=== PATIENT | male | born 1965 | race Caucasian/White ===

== ENCOUNTER 2019-03-08 06:54 | Day surgery (SDC) | payer MEDICAID ==
[2019-03-08] VITALS (17 sets, daily range): BP systolic 85–133; BP diastolic 33–86
[~2019-03-08] VITALS: Ht 180.3 cm; Wt 90.7 kg
[2019-03-08] MEDS ORDERED: NS IV 1000 ML 1,000 ML ONE (06:56)
[2019-03-08] MEDS ORDERED: LIDOCAINE 1% INJ 20 ML 20 ML VIAL ONE (06:56)
[2019-03-08] MEDS ORDERED: HEParin (CATH LAB) 2,000 ML IV ONE (06:57)
[2019-03-08] MEDS: NS IV 1000 ML 1,000 ML IV SCH ×3 (07:05→15:12)
[2019-03-08 07:29] LABS: HEMOGLOBIN 15.9 G/DL (13.3-17.7); MEAN PLATELET VOLUME 9.5 FL (7.4-10.4); RED CELL DISTRIBUTION WIDTH 15.4 % (10.0-14.5); WHITE BLOOD COUNT 7.2 10^3/uL (4.3-11.0)
[2019-03-08] MEDS ORDERED: FISH1CAP15 PO (07:29)
[2019-03-08] MEDS ORDERED: WARF7.5T49 PO (07:29)
[2019-03-08] MEDS ORDERED: RT-ALBUINH IH (07:29)
[2019-03-08] MEDS ORDERED: POTA-51 PO (07:29)
[2019-03-08] MEDS ORDERED: WARF-48 PO (07:29)
[2019-03-08] MEDS ORDERED: BECL10.62 IH (07:29)
[2019-03-08] MEDS ORDERED: FLUT15.88 NSEACH (07:29)
[2019-03-08] MEDS ORDERED: MONT10TA21 PO (07:29)
[2019-03-08] MEDS ORDERED: METO-352 PO (07:29)
[2019-03-08] MEDS ORDERED: ASPI-586 PO (07:29)
[2019-03-08] MEDS ORDERED: CETI10TA17 PO (07:29)
[2019-03-08] MEDS ORDERED: OMEP20CA12 PO (07:29)
[2019-03-08 07:39] LABS: INR 1.4 (0.8-1.4); PROTHROMBIN TIME PATIENT 17.7 SEC (12.2-14.7)
[2019-03-08 07:51] LABS: ALANINE AMINOTRANSFERASE 45 U/L (0-55); ALBUMIN 4.5 GM/DL (3.2-4.5); ALKALINE PHOSPHATASE 88 U/L (40-136); BILIRUBIN,TOTAL 1.1 MG/DL (0.1-1.0); BUN/CREATININE RATIO 8; CALCIUM 9.9 MG/DL (8.5-10.1); CARBON DIOXIDE 30 MMOL/L (21-32); CHLORIDE 103 MMOL/L (98-107); CHOLESTEROL 242 MG/DL (< 200); CREATININE SERUM 1.19 MG/DL (0.60-1.30); GFR ESTIMATED > 60; GLUCOSE 95 MG/DL (70-105); HDL CHOLESTEROL 48 MG/DL (40-60); POTASSIUM 4.4 MMOL/L (3.6-5.0); SODIUM 141 MMOL/L (135-145); TOTAL PROTEIN 7.9 GM/DL (6.4-8.2); TRIGLYCERIDES 204 MG/DL (<150); VLDL CHOLESTEROL 41 MG/DL (5-40)
[2019-03-08] MEDS ORDERED: MIDAZOLAM 5 MG/5 ML (VERSED) VIAL ONE (07:51)
[2019-03-08] MEDS ORDERED: fentaNYL INJECTION 100 MCG/2 ML AMP ONE (07:51)
--- NOTE | 2019-03-08 08:08 | Cardiac Procedure Note-CS/ASA ---
Pre-Procedure Note Pre-Op Procedure Note H&P Reviewed The H&P was reviewed, patient examined and no changes noted. Date H&P Reviewed: March 08, 2019 Time H&P Reviewed: 08:08 Conscious Sedation Pre-Proced Time 08:08 ASA Score 3 For ASA 3 and 4: Consider anesthesia and medical clearance. Also, for patients with a history of failed moderate sedation consider anesthesia. Airway Lungs Heart ASA score ASA 1: a normal healthy patient ASA 2: a patient with a mild systemic disease (mid diabetes, controlled hypertension, obesity ASA 3: a patient with a severe systemic disease that limits activity (angina, COPD, prior Myocardial infarction) ASA 4: a patient with an incapacitating disease that is a constant threat to life (CHF, renal failure) ASA 5: a moribund patient not expected to survive 24 hrs. (ruptured aneurysm) ASA 6: a declared brain- patient whose organs are being harvested. For emergent operations, add the letter E after the classification Mallampati Classification Grade 2 Sedation Plan Analgesia, Amnesia, Plan communicated to team members, Discussed options with patient/fam, Discussed risks with patient/fam The patient is an appropriate candidate to undergo the planned procedure, sedation, and anesthesia. The patient immediately re-assessed prior to indication. FADI OLVERA MD FACP FAC CCDS March 08, 2019 08:08
--- OUTSIDE RECORDS SUMMARY | 2019-03-08 08:16 | XMS REPORT | Continuity of Care Document ---
Author Organization Unknown Address Unknown Allergies There is no data. Medications There is no data. Problems There is no data. Procedures There is no data. Results Test Result Range CBC - 02/08/19 10:30 WHITE BLOOD CELL COUNT 6.2 Thousand/uL 3.8-10.8 RED BLOOD CELL COUNT 5.82 Million/uL 4.20-5.80 HEMOGLOBIN 16.2 g/dL 13.2-17.1 HEMATOCRIT 47.4 % 38.5-50.0 MCV 81.4 fL 80.0-100.0 MCH 27.8 pg 27.0-33.0 MCHC 34.2 g/dL 32.0-36.0 RDW 14.2 % 11.0-15.0 PLATELET COUNT 226 Thousand/uL 140-400 MPV 10.6 fL 7.5-12.5 ABSOLUTE NEUTROPHILS 3466 cells/uL 0310-1623 ABSOLUTE LYMPHOCYTES 2003 cells/uL 850-3900 ABSOLUTE MONOCYTES 570 cells/uL 200-950 ABSOLUTE EOSINOPHILS 143 cells/uL 15-500 ABSOLUTE BASOPHILS 19 cells/uL 0-200 NEUTROPHILS 55.9 % NRG LYMPHOCYTES 32.3 % NRG MONOCYTES 9.2 % NRG EOSINOPHILS 2.3 % NRG BASOPHILS 0.3 % NRG CMP - 02/14/19 14:10 GLUCOSE 95 mg/dL 65-99 UREA NITROGEN (BUN) 13 mg/dL 7-25 CREATININE 1.05 mg/dL 0.70-1.33 eGFR NON-AFR. BOTSWANAN 81 mL/min/1.73m2 > OR=60 eGFR 94 mL/min/1.73m2 > OR=60 BUN/CREATININE RATIO NOT APPLICABLE (calc) 6-22 SODIUM 139 mmol/L 135-146 POTASSIUM 4.1 mmol/L 3.5-5.3 CHLORIDE 102 mmol/L 98-110 CARBON DIOXIDE 29 mmol/L 20-32 CALCIUM 9.2 mg/dL 8.6-10.3 PROTEIN, TOTAL 7.1 g/dL 6.1-8.1 ALBUMIN 4.2 g/dL 3.6-5.1 GLOBULIN 2.9 g/dL (calc) 1.9-3.7 ALBUMIN/GLOBULIN RATIO 1.4 (calc) 1.0-2.5 BILIRUBIN, TOTAL 0.5 mg/dL 0.2-1.2 ALKALINE PHOSPHATASE 74 U/L 40-115 AST 22 U/L 10-35 ALT 25 U/L 9-46 CBC - 02/14/19 14:10 WHITE BLOOD CELL COUNT 6.5 Thousand/uL 3.8-10.8 RED BLOOD CELL COUNT 5.67 Million/uL 4.20-5.80 HEMOGLOBIN 15.3 g/dL 13.2-17.1 HEMATOCRIT 47.0 % 38.5-50.0 MCV 82.9 fL 80.0-100.0 MCH 27.0 pg 27.0-33.0 MCHC 32.6 g/dL 32.0-36.0 RDW 14.1 % 11.0-15.0 PLATELET COUNT 193 Thousand/uL 140-400 MPV 9.5 fL 7.5-12.5 ABSOLUTE NEUTROPHILS 3075 cells/uL 6288-3766 ABSOLUTE LYMPHOCYTES 2548 cells/uL 850-3900 ABSOLUTE MONOCYTES 650 cells/uL 200-950 ABSOLUTE EOSINOPHILS 208 cells/uL 15-500 ABSOLUTE BASOPHILS 20 cells/uL 0-200 NEUTROPHILS 47.3 % NRG LYMPHOCYTES 39.2 % NRG MONOCYTES 10.0 % NRG EOSINOPHILS 3.2 % NRG BASOPHILS 0.3 % NRG D-DIMER - 02/14/19 14:10 D-DIMER, QUANTITATIVE 0.20 mcg/mL FEU <0.50 BNP - 02/14/19 14:10 B TYPE NATRIURETIC PEPTIDE (BNP) 13 pg/mL <100 Encounters ACCT No. Visit Date/Time Discharge Status Pt. Type Provider Facility Loc./Unit Complaint [id number] 02/14/2019 13:00:00 02/14/2019 23:59:59 [id number] 02/14/2019 13:00:00 Document Registration [id number] 02/08/2019 09:40:00 Document Registration [id number] 03/01/2019 14:35:00 03/01/2019 23:59:59 CLS Preadmit MAY FAJARDO FACC, FADI NAVARRO CCDS [facility] CARD CHEST DISCOMFORT [id number] 03/01/2019 14:33:00 03/01/2019 23:59:59 CLS Preadmit MAY FAJARDO FACC, FADI NAVARRO CCDS [facility] RAD CHEST DISCOMFORT [id number] 03/12/2019 08:00:00 PEN PreadFADI Vidales MD, FACC, FACP CCDS [facility] CATH ANGINA, HTN, HYPERLIPIDEMIA, DM
[2019-03-08] MEDS ORDERED: HEParin 1000 UNIT/ML (10ML VIAL) FOR BOLUS ONE (08:24)
[2019-03-08] MEDS ORDERED: ADENOSINE 3 MG/1 ML (ADENOSCAN) 30ML VIAL IV ONE ×2 (08:24→08:26)
[2019-03-08] MEDS ORDERED: EPTIFIBATIDE BOLUS 20 ML IV ONE (08:40)
[2019-03-08] MEDS ORDERED: NITRO DRIP 25000 MCG/D5W 0 ML IV ONE (08:45)
[2019-03-08] MEDS ORDERED: CLOPIDOGREL 300 MG (PLAVIX) TABLET PO ONE (09:13)
[2019-03-08] MEDS ORDERED: ASPIRIN 81 MG CHEW (CHILDREN'S ASA) ONE (09:13)
[2019-03-08] MEDS ORDERED: ACETAMINOPHEN 325 MG TABLET PO PRN (09:45)
[2019-03-08] MEDS ORDERED: BECLOMETHASONE DIPROPIONATE 10.6 GM IH PRN (09:45)
[2019-03-08] MEDS ORDERED: RT-ALBUTEROL SULF 2.5 MG/3 ML PRE-MIX VIAL IH PRN (09:45)
[2019-03-08] MEDS ORDERED: PATIENT MAY USE OWN MEDS, ALL PO SCH (09:45)
--- NOTE | 2019-03-08 11:47 | CARDIAC CATHETERIZATION ---
DATE OF SERVICE: 03/08/2019 CARDIAC CATHETERIZATION AND CORONARY INTERVENTION REPORT INDICATIONS: The patient is a 54-year-old gentleman who has multiple coronary artery disease risk factors and who has been experiencing symptoms consistent with progressive angina. Cardiac catheterization was carried out after having obtained an informed consent. Informed consent was also obtained for ad hoc coronary intervention, if needed. DESCRIPTION OF PROCEDURE: The patient was brought to the cardiac catheterization laboratory in a fasting state. Right groin was prepared and draped in the usual sterile fashion. Lidocaine 1% was used for local anesthesia. Modified Seldinger technique was used to advance a 5-Sami sheath in the right femoral artery, 5-Sami JL4 catheter for left coronary angiography, 5-Sami JR4 catheter for right coronary angiography, 5-Sami pigtail catheter was used for left heart catheterization and left ventricular angiography. FRACTIONAL FLOW RESERVE MEASUREMENT IN THE LEFT ANTERIOR DESCENDING ARTERY: After completion of the angiography, we proceeded with fractional flow reserve measurement within the left anterior descending artery because the left anterior descending artery was exhibiting and approximately 60% stenosis in its proximal portion with haziness. We exchanged the sheath over a wire for a 6-Sami sheath. We gave 6500 units of intravenous heparin. We used a 6-Sami JL4 guide catheter to engage the left main coronary artery. We advanced a Pressure Wire X across the lesion in the left anterior descending artery and the tip was placed in the distal vessel. Fractional flow reserve measurement was carried out while infusing adenosine at 140 mcg per kilogram per minute. Fractional flow reserve was measured at 0.69, indicating that the lesion in the proximal left anterior descending artery was functionally significant. We then proceeded with percutaneous intervention of the left anterior descending artery as described below. PERCUTANEOUS INTERVENTION TO THE LEFT ANTERIOR DESCENDING ARTERY: We used the Pressure Wire X to deliver Alpine Xience 2.25 x 33 mm balloon to the proximal left anterior descending artery where the lesion was. The stent was deployed at 12 atmospheres. The stent balloon was then collapsed and pulled back approximately 3 mm and the balloon was then inflated up to 18 atmospheres. The balloon was then collapsed and removed. Angiography indicated no significant residual stenosis, but the proximal and mid portions of the stent appeared somewhat under deployed. We advanced Quantum NC balloon to the stented segment. The whole stented segment except the distal 3 mm bur ballooned with this 2.75 x 12 mm with balloon inflation up to 20 atmospheres. This was done in stages from distal to proximal. Subsequent angiography revealed 0% residual stenosis and the stent appears to be well deployed. Flow throughout the vessel is normal. He tolerated the procedure well. He received a double bolus of Integrilin during the procedure. He had received 6500 units of intravenous heparin just prior to initiation of the interventional procedure. At the end of the procedure, angiography of the right femoral artery was carried out through the sheath. Mynx was used to achieve hemostasis. He tolerated the procedure well. HEMODYNAMICS: Left ventricular end-diastolic pressure following coronary angiography was 10 mmHg. There is no significant pressure gradient on pullback across the aortic valve. Ascending aortic pressure was 101/61 with a mean of 74 mmHg. LEFT VENTRICULAR ANGIOGRAPHY: Left ventricular angiography was carried out in the EMERSON projection only. Global left ventricular systolic function appears well preserved. There does not appear to be distinct regional wall motion abnormality. Left ventricular ejection fraction is 50% to 55% CORONARY ANGIOGRAPHY: Diffuse coronary calcification is seen. Left main coronary artery does not exhibit significant disease. Left anterior descending artery has a long stenosis in its proximal portion that extends into the mid portion and angiographically appeared 60% to 70%, but was hemodynamically significant with a fractional flow reserve of 0.69 prior to intervention. This area was successfully stented with Alpine Xience 2.25 x 33 mm stent, which was postdilated 2.75 mm size (see above for details). The left circumflex artery is small and has mild diffuse disease. A ramus intermedius artery has mild diffuse disease. Right coronary artery is dominant and has diffuse moderate disease. CONCLUSIONS: 1. Coronary artery disease primarily consisting of a long 60% to 70% stenosis with a fractional flow reserve of 0.69 in its proximal to midportion. This was successfully stented with Alpine Xience 2.25 x 33 mm stent that was postdilated to 2.75 mm size. The rest of the coronary vessels have mild to moderate diffuse disease. 2. Well preserved global left ventricular systolic function with ejection fraction 55%. 3. Normal left ventricular end-diastolic pressure. DISCUSSION AND RECOMMENDATIONS: He is being hospitalized for overnight observation. Dual antiplatelet therapy is being initiated. We will continue with Plavix for a year. We will continue with aspirin for several days and then we will stop it because he is also on warfarin and the use of all 3 agents will put him at high risk of bleeding. Once he comes off of Plavix, we will add aspirin back to the regimen. Risk factor modification has been reviewed with him. We have advised him to continue to refrain from tobacco use. Job ID: [id number] DocumentID: [id number] Dictated Date: 03/08/2019 09:30:58 Freight We[employer]her Date: 03/08/2019 11:46:37 Dictated By: FADI OLVERA MD, MA, FACP, FACC,
--- NOTE | 2019-03-08 17:11 | NUR ---
1711:RN AT BEDSIDE TO DEFLATE SAFETY GUARD. SITE SOFT TO PALPATION. PALPABLE RIGHT PEDAL PULSE. SAFETY GUARD DEFLATED 5ML. RIGHT GROIN SITE BEGAN TO OOZE BLOOD. IMMEDIATE MANUAL PRESSURE HELD FOR 10 MINUTES. 1721: RIGHT GROIN SITE REDRESSED WITH GAUZE AND OPSITE. NO BLEEDING NOTED FROM SITE. DR. GARCIA ([employer]) NOTIFIED.
--- NOTE | 2019-03-08 22:00 | NUR ---
pt rolled and linens changed. pt moving legs without pain or bleeding
[2019-03-09] VITALS: BP 107/66
[2019-03-09] MEDS: NS IV 1000 ML 1,000 ML IV SCH ×2 (01:26→07:48)
[2019-03-09 03:34] LABS: HEMOGLOBIN 13.6 G/DL (13.3-17.7); MEAN PLATELET VOLUME 9.8 FL (7.4-10.4); WHITE BLOOD COUNT 6.4 10^3/uL (4.3-11.0)
[2019-03-09 04:00] VITALS: BP 115/74
[2019-03-09 04:02] LABS: BUN/CREATININE RATIO 12; CALCIUM 8.7 MG/DL (8.5-10.1); CARBON DIOXIDE 22 MMOL/L (21-32); CHLORIDE 106 MMOL/L (98-107); CREATININE SERUM 1.02 MG/DL (0.60-1.30); GFR ESTIMATED > 60; GLUCOSE 114 MG/DL (70-105); POTASSIUM 4.1 MMOL/L (3.6-5.0); SODIUM 137 MMOL/L (135-145)
[2019-03-09] MEDS ORDERED: PANTOPRAZOLE 20 MG TABLET (PROTONIX) PO SCH (07:00)
[2019-03-09] MEDS ORDERED: OMEGA 3 (FISH OIL) 1000 MG CAP PO SCH (07:00)
[2019-03-09] MEDS ORDERED: MONTELUKAST 10 MG (SINGULAIR) TAB PO SCH (09:00)
[2019-03-09] MEDS ORDERED: warFARin 5 MG (COUMADIN) TAB PO SCH (09:00)
[2019-03-09] MEDS ORDERED: NON-FORMULARY MEDICATION 1 EA EA (Fluticasone Propionate 2 SPRAY) NSEACH SCH (09:00)
[2019-03-09] MEDS ORDERED: OMEPRAZOLE 20 MG (PriLOSEC) CAP NON-FORMULARY PO SCH (09:00)
[2019-03-09] MEDS ORDERED: NON-FORMULARY MEDICATION 1 EA EA (Metoprolol Succinate (Toprol Xl) 50 MG) PO SCH (09:00)
[2019-03-09] MEDS ORDERED: LORATADINE (CLARITIN) 10 MG TAB PO SCH (09:00)
[2019-03-09] MEDS ORDERED: meTOproloL SUCCINATE 50 MG (TOPROL XL) TAB PO SCH (09:00)
[2019-03-09] MEDS ORDERED: CLOPIDOGREL 75 MG (PLAVIX) TABLET PO SCH (09:00)
[2019-03-09] MEDS ORDERED: NON-FORMULARY MEDICATION 1 EA EA (Montelukast Sodium (Singulair) 10 MG) PO SCH (09:00)
[2019-03-09] MEDS ORDERED: NON-FORMULARY MEDICATION 1 EA EA (Aspirin (Aspir 81) 81 MG) PO SCH (09:00)
[2019-03-09] MEDS ORDERED: NON-FORMULARY MEDICATION 1 EA EA (Cetirizine HCl 10 MG) PO SCH (09:00)
[2019-03-09] MEDS ORDERED: NON-FORMULARY MEDICATION 1 EA EA (Fish Oil/Dha/Epa (Fish Oil 1,200 mg Fish Oil) 1 EACH) PO SCH (09:00)
[2019-03-09] MEDS ORDERED: ASPIRIN E.C. 81 MG (ECOTRIN) TAB PO SCH (09:00)
[2019-03-09 11:50] VITALS: BP 115/77
[2019-03-09 12:00] VITALS: BP 115/77
--- NOTE | 2019-03-09 13:19 | Progress Note-Cardiology ---
Cardiology SOAP Progress Note Subjective: No cp or palp or syncope or shortness of breath or groin discomfort Wishes to go home Objective: I&O/Vital Signs 03/09/19 03/09/19 03/09/19 03/09/19 04:00 07:00 08:00 08:00 Temp 97.6 Pulse 71 70 69 Resp 16 13 B/P (MAP) 115/74 (88) Pulse Ox 97 96 O2 Delivery Room Air Room Air Room Air 03/09/19 03/09/19 03/09/19 08:00 11:50 12:48 Temp 98.3 97.8 Pulse 66 59 Resp 16 B/P (MAP) 115/77 (90) Pulse Ox 97 O2 Delivery Room Air 03/09/19 00:00 Intake Total 1790 ml Output Total 825 ml Balance 965 ml Weight (Pounds): 200 Weight (Ounces): 0.0 Weight (Calculated Kilograms): [id number] Condition: DP/PT pulses palpable Bruising: mild bruising Constitutional: AAO x 3, well-developed, well-nourished Respiratory: No accessory muscle use; other (good bilat air entry; somewhat prolonged exp phase) Cardiovascular: regular rate-rhythm, S1 and S2, systolic murmur (soft INNA at card base) Gastrointestional: No tender; soft; No guarding, No rebound; audible bowel sounds Extremities: No clubbing, No cyanosis, No significant edema Neurologic/Psychiatric: oriented x 3, grossly intact, power is 5/5 both on sides Skin: No rash on exposed areas, No ulcerations on exposed areas Results/Procedures: Labs Laboratory Tests 03/09/19 02:55: White Blood Count 6.4, Red Blood Count 4.90, Hemoglobin 13.6, Hematocrit 40, Mean Corpuscular Volume 82, Mean Corpuscular Hemoglobin 28, Mean Corpuscular Hemoglobin Concent 34, Red Cell Distribution Width 15.0H, Platelet Count 136, Mean Platelet Volume 9.8, Sodium Level 137, Potassium Level 4.1, Chloride Level 106, Carbon Dioxide Level 22, Anion Gap 9, Blood Urea Nitrogen 12, Creatinine 1.02, Estimat Glomerular Filtration Rate > 60, BUN/Creatinine Ratio 12, Glucose Level 114H, Calcium Level 8.7 Laboratory Tests 03/08/19 07:10 03/09/19 02:55 A/P: Assessment: Coronary artery disease. Card cath of 03/08/19 showed a long 60% to 70% stenosis with a fractional flow reserve of 0.69 in its proximal to midportion. This was successfully stented with Alpine Xience 2.25 x 33 mm stent that was postdilated to 2.75 mm size. The rest of the coronary vessels have mild to moderate diffuse disease. Well-preserved global left ventricular systolic function with ejection fraction 55%. Normal left ventricular end-diastolic pressure. Hypertension, borderline PAF, first diagnosed in 2017 during a hospitalization for abd surgery (partial colectomy at [facility]) H/o pulm embolism (1993; also had another time the year of which he can't recall) Chronic warfarin anticoag Quit smoking in 2012 Borderline DM II, diet-controlled Hyperlipidemia (intolerant to statins) COPD Symptoms of claudication. He is awaiting a w/u Plan: * I reviewed in detail with him and his the cath findings and the interventions undertaken * ASA and clopidogrel has been added to the regimen. Because he is also on warfarin, we will continue ASA only for a few more days and then stop it. The plan will be continue Plavix for a year and then to replace Plavix with ASA. Warfarin will continue uninterrupted * Close clinical f/u is advised, beginning within a few days of discharge today * We have discussed risk factor mod * We have advised continuing avoidance of tobacco use * Unfortunately, he is not suitable for statin therapy due to a h/o marked intolerance FADI OLVERA MD FACP FAC CCDS Mar 09, 2019 13:19
[2019-03-09] MEDS ORDERED: CLOP75TA28 PO (13:22)
--- NOTE | 2019-03-09 13:24 | Discharge Inst-Cardiology ---
Discharge Inst-Cardiac Discharge Medications New Medications: Clopidogrel Bisulfate (Clopidogrel) 75 Mg Tablet 75 MG PO DAILY for 60 Days, #90 TAB 3 Refills Continued Medications: Albuterol Sulfate (Proair Hfa) 1 Puff Puff 2 PUFF IH PRN PRN for SHORTNESS OF BREATH, PUFF 1 PUFF = 90 MCG Aspirin (Aspir 81) 81 Mg Tablet.dr 81 MG PO DAILY, TAB Beclomethasone Dipropionate (Qvar Redihaler) 10.6 Gm Hfa.aeroba 10.6 GM IH PRN PRN for WHEEZING Cetirizine HCl (Cetirizine HCl) 10 Mg Tablet 10 MG PO DAILY, TAB Fish Oil/Dha/Epa (Fish Oil 1,200 mg Fish Oil) 1 Each Capsule 1 EACH PO DAILY, CAP Fluticasone Propionate (Fluticasone Propionate) 15.8 Ml Butler.susp 2 SPRAY NSEACH DAILY, SPRAY Metoprolol Succinate (Toprol Xl) 50 Mg Tab.er.24h 50 MG PO DAILY, TAB Montelukast Sodium (Singulair) 10 Mg Tablet 10 MG PO DAILY, TAB Omeprazole (Omeprazole) 20 Mg Capsule.dr 20 MG PO DAILY, CAP Warfarin Sodium (Warfarin Sodium) 5 Mg Tablet 5 MG PO DAILYEXCEPT WED, TAB Warfarin Sodium (Warfarin Sodium) 7.5 Mg Tablet 7.5 MG PO WED, TAB Discontinued Medications: Potassium Chloride (Potassium Chloride) 20 Meq Tablet.er 20 MEQ PO DAILY, TAB FADI OLVERA MD [facility] CCDS Mar 09, 2019 13:24
--- NOTE | 2019-03-09 13:25 | Discharge Inst-Post CATH ---
Discharge Inst-CATH/EP Post Cardiac Cath/EP D/C Inst Follow Up/Plan F/u with Dr Coulter on 03/13/19 or 03/14/19 ACTIVITY * Go Home directly and rest. * Limit activity of the leg (or wrist if it was used) for 7 days including aerobics, swimming, jogging, bicycling, etc. * Restrict stair-climbing for 7 days if possible, if not, climb up with your non-cath leg, then bring together on the same step. * Avoid lifting, pushing, pulling or excessive movement of the affected extremity for 7 days. * Customary sexual activity may be resumed after 2 days-use caution not to use a position that strains or causes pain to the affected extremity. * No driving for 24 hours. * NO SMOKING. * Avoid straining for bowel movements for 7 days. * Gentle walking on level ground is allowed. * Returning to work will depend on the type of procedure and the results. Your doctor will discuss this with you. CALL YOUR DOCTOR FOR ANY OF THE FOLLOWING: *If bleeding from the puncture site occurs- Apply gentle pressure to site with clean cloth and call your doctor or EMS. * If a knot or lump forms under the skin, increases in size, or causes pain. * If bruising appears to be worsening or moving further down your leg instead of disappearing. * Temperature above 101 F. CARE OF YOUR GROIN INCISION; * Bruising or purple discoloration of the skin near the puncture site is common. * You may shower only, no bathtub bathing for 5 days. Be careful to avoid slipping as your leg may feel stiff. * If a closure device was used on your femoral artery, please see the attached guide regarding care of the device and your leg. * Leave dressing on FOR 24 hours. CARE OF YOUR WRIST INCISION; * Bruising or purple discoloration of the skin near the puncture site is common. * You may shower. * DO NOT submerge wrist. * Leave dressing on FOR 24 hours. FADI COULTER MD FACP FAC CCDS Mar 09, 2019 13:25
--- NOTE | 2019-03-09 14:08 | NUR ---
GISELA LINARES demonstrates understanding of discharge instructions and accurately returns instructions upon questioning. Copy of Post-Discharge Instructions and Medication Discharge Instructions given to patient and at bedside. GISELA LINARES is able to manage continuing needs after discharge. Patients belongings returned to patient and . Skin dry and intact; no breakdown noted. Patient discharged from 3-1 on March 09, 2019 at 1408 . GISELA LINARES left floor walking, accompanied by Nurse sarah Hardwick.
== END 2019-03-09 14:08 | disposition home or self-care (01) ==
LOC: CATH 06:54 → ICU 09:43 → CATH 03-09 14:08
PROVIDERS: ATTEND Internal Medicine Cardiovascular Disease
DX: I25.10 Atherosclerotic heart disease of native coronary artery without angina pectoris (principal); I48.0 Paroxysmal atrial fibrillation; I10 Essential (primary) hypertension; E78.5 Hyperlipidemia, unspecified; J44.9 Chronic obstructive pulmonary disease, unspecified; R73.03 Prediabetes; Z82.49 Family history of ischemic heart disease and other diseases of the circulatory system; Z87.891 Personal history of nicotine dependence; Z86.711 Personal history of pulmonary embolism; Z79.01 Long term (current) use of anticoagulants; Z79.82 Long term (current) use of aspirin; Z79.899 Other long term (current) drug therapy
CPT/HCPCS: 36415; 80048; 80053; 80061; 85027; 85610; 85730; 87081; 93005; 93458

== ENCOUNTER → 2019-03-19 | Outpatient (CLI) | payer MEDICAID ==
[~2019-03-19] MED LIST: ASPI-586 PO; BECL10.62 IH; CETI10TA17 PO; CLOP75TA28 PO; FISH1CAP15 PO; FLUT15.88 NSEACH; METO-352 PO; MONT10TA21 PO; OMEP20CA12 PO; POTA-51 PO; RT-ALBUINH IH; WARF-48 PO; WARF7.5T49 PO
--- NOTE | 2019-03-19 13:54 | Diagnostic Imaging Report ---
EXAMINATION: Ultrasound noninvasive. INDICATION: Leg pain Routine images were obtained. There are no prior studies available for comparison. The ankle-brachial index on the right is 1.21 and on the left 1.13 (normal 1.00 or greater). IMPRESSION: The ankle-brachial indices are within normal limits. Dictated on workstation # [id number]
== END ==
LOC: CARD 12:15
PROVIDERS: ATTEND Internal Medicine Cardiovascular Disease
DX: R07.9 Chest pain, unspecified (principal); I10 Essential (primary) hypertension; E78.5 Hyperlipidemia, unspecified; E11.9 Type 2 diabetes mellitus without complications; I73.9 Peripheral vascular disease, unspecified; Z87.891 Personal history of nicotine dependence
CPT/HCPCS: 93306; 93923

== ENCOUNTER 2019-03-26 06:35 | Day surgery (SDC) | payer MEDICAID ==
[~2019-03-26] VITALS: Ht 180.3 cm; Wt 90.7 kg
[2019-03-26] VITALS (9 sets, daily range): BP systolic 103–133; BP diastolic 73–98
--- OUTSIDE RECORDS SUMMARY | 2019-03-26 06:39 | XMS REPORT | Continuity of Care Document ---
Author Organization Unknown Address Unknown Allergies Active Description Code Type Severity Reaction Onset Reported/Identified Relationship to Patient Clinical Status Yes FLU SHOT FLU SHOT Unknown N/A 03/08/2019 Yes gemfibrozil [id number] Drug Allergy Unknown N/A 03/08/2019 Yes Eudngow-Cjn-Qrd Reductase Inhibitor [id number] Drug Allergy Unknown N/A 03/08/2019 Medications There is no data. Problems Date Dx Coded Attending Type Code Diagnosis Diagnosed By 03/09/2019 FADI OLVERA MD, FACC FACP CCDS Ot E78.5 HYPERLIPIDEMIA, UNSPECIFIED 03/09/2019 FADI OLVERA MD, FACC FACP CCDS Ot I10 ESSENTIAL (PRIMARY) HYPERTENSION 03/09/2019 FADI OLVERA MD, FACC FACP CCDS Ot I25.10 ATHSCL HEART DISEASE OF [place] CORONARY 03/09/2019 FADI OLVERA MD, FACC FACP CCDS Ot I48.0 PAROXYSMAL ATRIAL FIBRILLATION 03/09/2019 FADI OLVERA MD, FACC FACP CCDS Ot J44.9 CHRONIC OBSTRUCTIVE PULMONARY DISEASE, U 03/09/2019 FADI OLVERA MD, FACC FACP CCDS Ot R73.03 PREDIABETES 03/09/2019 FADI OLVERA MD, FACC FACP CCDS Ot Z79.01 MCC (CURRENT) USE OF ANTICOAGULANT 03/09/2019 FADI OLVERA MD, FACC FACP CCDS Ot Z79.82 MCC (CURRENT) USE OF ASPIRIN 03/09/2019 FDAI OLVERA MD, FACC FACP CCDS Ot Z79.899 OTHER MCC (CURRENT) DRUG THERAPY 03/09/2019 FADI OLVERA MD, FACC FACP CCDS Ot Z82.49 FAMILY HX OF ISCHEM HEART DIS AND OTH DI 03/09/2019 FADI OLVERA MD, FACCP CCDS Ot Z86.711 PERSONAL HISTORY OF PULMONARY EMBOLISM 03/09/2019 FADI OLVERA MD, FACC FACP CCDS Ot Z87.891 PERSONAL HISTORY OF NICOTINE DEPENDENCE 03/13/2019 MAY FAJARDO FACC, FADI FACP CCDS Ot E78.5 HYPERLIPIDEMIA, UNSPECIFIED 03/13/2019 MAY FAJARDO FACC, ALI FACP CCDS Ot I10 ESSENTIAL (PRIMARY) HYPERTENSION 03/13/2019 MAY FAJARDO FACC, ALI FACP CCDS Ot I25.10 ATHSCL HEART DISEASE OF [place] CORONARY 03/13/2019 MAY FAJARDO FACC, ALI FACP CCDS Ot I48.0 PAROXYSMAL ATRIAL FIBRILLATION 03/13/2019 MAY FAJARDO FACC, ALI FACP CCDS Ot J44.9 CHRONIC OBSTRUCTIVE PULMONARY DISEASE, U 03/13/2019 MAY FAJARDO FACC, ALI FACP CCDS Ot R73.03 PREDIABETES 03/13/2019 MAY FAJARDO FACC, FADI FACP CCDS Ot Z79.01 MCC (CURRENT) USE OF ANTICOAGULANT 03/13/2019 MAY FAJARDO FACC, FADI FACP CCDS Ot Z79.82 TRANSMITTER SUPERVISOR (CURRENT) USE OF ASPIRIN 03/13/2019 MAY FAJARDO FACC, FADI FACP CCDS Ot Z79.899 OTHER TRANSMITTER SUPERVISOR (CURRENT) DRUG THERAPY 03/13/2019 MAY FAJARDO FACC, FADI FACP CCDS Ot Z82.49 FAMILY HX OF ISCHEM HEART DIS AND OTH DI 03/13/2019 MAY FAJARDO FACC, FADI FACP CCDS Ot Z86.711 PERSONAL HISTORY OF PULMONARY EMBOLISM 03/13/2019 MAY FAJARDO FACC, ALI FACP CCDS Ot Z87.891 PERSONAL HISTORY OF NICOTINE DEPENDENCE 03/15/2019 MAY FAJARDO FACC, FADI FACP CCDS Ot E78.5 HYPERLIPIDEMIA, UNSPECIFIED 03/15/2019 MAY FAJARDO FACC, FADI FACP CCDS Ot I10 ESSENTIAL (PRIMARY) HYPERTENSION 03/15/2019 MAY FAJARDO FACC, ALI FACP CCDS Ot I25.10 ATHSCL HEART DISEASE OF [place] CORONARY 03/15/2019 MAY FAJARDO FACC, ALI FACP CCDS Ot I48.0 PAROXYSMAL ATRIAL FIBRILLATION 03/15/2019 MAY FAJARDO FACC, ALI FACP CCDS Ot J44.9 CHRONIC OBSTRUCTIVE PULMONARY DISEASE, U 03/15/2019 MAY FAJARDO FACC, ALI FACP CCDS Ot R73.03 PREDIABETES 03/15/2019 MAY FAJARDO FACC, ALI FACP CCDS Ot Z79.01 TRANSMITTER SUPERVISOR (CURRENT) USE OF ANTICOAGULANT 03/15/2019 MAY DIAZ, ALI FACP CCDS Ot Z79.82 TRANSMITTER SUPERVISOR (CURRENT) USE OF ASPIRIN 03/15/2019 MAY FAJARDO [facility], ALI FACP CCDS Ot Z79.899 OTHER TRANSMITTER SUPERVISOR (CURRENT) DRUG THERAPY 03/15/2019 MAY FAJARDO FACC, ALI FACP CCDS Ot Z82.49 FAMILY HX OF ISCHEM HEART DIS AND OTH DI 03/15/2019 MAY FAJARDO FAC, ALI FACP CCDS Ot Z86.711 PERSONAL HISTORY OF PULMONARY EMBOLISM 03/15/2019 MAY FAJARDO FAC, ALI FACP CCDS Ot Z87.891 PERSONAL HISTORY OF NICOTINE DEPENDENCE 03/21/2019 [facility]I FACP CCDS Ot E11.9 TYPE 2 DIABETES MELLITUS WITHOUT COMPLIC 03/21/2019 MAY FAJARDO FAC, ALI FACP CCDS Ot E78.5 HYPERLIPIDEMIA, UNSPECIFIED 03/21/2019 MAY FAJARDO FAC, ALI FACP CCDS Ot I10 ESSENTIAL (PRIMARY) HYPERTENSION 03/21/2019 MAY FAJARDO [facility], ALI FACP CCDS Ot I73.9 PERIPHERAL VASCULAR DISEASE, UNSPECIFIED 03/21/2019 MAY FAJARDO FAC, ALI FACP CCDS Ot R07.9 CHEST PAIN, UNSPECIFIED 03/21/2019 MAY FAJARDO FAC, ALI FACP CCDS Ot Z87.891 PERSONAL HISTORY OF NICOTINE DEPENDENCE Procedures There is no data. Results Test [...] 10.6 fL 7.5-12.5 ABSOLUTE NEUTROPHILS 3466 cells/uL 3760-8223 ABSOLUTE LYMPHOCYTES 2003 cells/uL 850-3900 ABSOLUTE MONOCYTES 570 cells/uL 200-950 ABSOLUTE EOSINOPHILS 143 cells/uL 15-500 ABSOLUTE BASOPHILS 19 cells/uL 0-200 NEUTROPHILS 55.9 % NRG LYMPHOCYTES 32.3 % NRG MONOCYTES 9.2 % NRG EOSINOPHILS 2.3 % NRG BASOPHILS 0.3 % NRG CMP - 02/14/19 14:10 GLUCOSE 95 mg/dL 65-99 UREA NITROGEN (BUN) 13 mg/dL 7-25 CREATININE 1.05 mg/dL 0.70-1.33 eGFR NON-AFR. PERUVIAN 81 mL/min/1.73m2 > OR=60 eGFR 94 mL/min/1.73m2 [...] 9.5 fL 7.5-12.5 ABSOLUTE NEUTROPHILS 3075 cells/uL 1775-4883 ABSOLUTE LYMPHOCYTES 2548 cells/uL 850-3900 ABSOLUTE MONOCYTES 650 cells/uL 200-950 ABSOLUTE EOSINOPHILS 208 cells/uL 15-500 ABSOLUTE BASOPHILS 20 cells/uL 0-200 NEUTROPHILS 47.3 % NRG LYMPHOCYTES 39.2 % NRG MONOCYTES 10.0 % NRG EOSINOPHILS 3.2 % NRG BASOPHILS 0.3 % NRG D-DIMER - 02/14/19 14:10 D-DIMER, QUANTITATIVE 0.20 mcg/mL FEU <0.50 BNP - 02/14/19 14:10 B TYPE NATRIURETIC PEPTIDE (BNP) 13 pg/mL <100 Automated blood complete blood count (hemogram) panel - 03/08/19 07:10 Blood leukocytes automated count (number/volume) 7.2 10*3/uL 4.3-11.0 Blood erythrocytes automated count (number/volume) 5.75 10*6/uL 4.35-5.85 Venous blood hemoglobin measurement (mass/volume) 15.9 g/dL 13.3-17.7 Blood hematocrit (volume fraction) 47 % 40-54 Automated erythrocyte mean corpuscular volume 82 [foz_us] 80-99 Automated erythrocyte mean corpuscular hemoglobin (mass per erythrocyte) 28 pg 25-34 Automated erythrocyte mean corpuscular hemoglobin concentration measurement (mass/volume) 34 g/dL 32-36 Automated erythrocyte distribution width ratio 15.4 % 10.0- 14.5 Automated blood platelet count (count/volume) 196 10*3/uL 130-400 Automated blood platelet mean volume measurement 9.5 [foz_us] 7.4-10.4 PT panel in platelet poor plasma by coagulation assay - 03/08/19 07:10 Prothrombin time (PT) in platelet poor plasma by coagulation assay 17.7 s 12.2-14.7 INR in platelet poor plasma or blood by coagulation assay 1.4 0.8-1.4 Activated partial thromboplastin time (aPTT) in platelet poor plasma bycoagulation assay - 03/08/19 07:10 Activated partial thromboplastin time (aPTT) in platelet poor plasma bycoagulation assay 45 s 24-35 Comprehensive metabolic panel - 03/08/19 07:10 Serum or plasma sodium measurement (moles/volume) 141 mmol/L 135-145 Serum or plasma potassium measurement (moles/volume) 4.4 mmol/L 3.6-5.0 Serum or plasma chloride measurement (moles/volume) 103 mmol/L 98-107 Carbon dioxide 30 mmol/L 21-32 Serum or plasma anion gap determination (moles/volume) 8 mmol/L 5-14 Serum or plasma urea nitrogen measurement (mass/volume) 10 mg/dL 7-18 Serum or plasma creatinine measurement (mass/volume) 1.19 mg/dL 0.60-1.30 Serum or plasma urea nitrogen/creatinine mass ratio 8 NRG Serum or plasma creatinine measurement with calculation of estimated glomerular filtration rate > NRG Serum or plasma glucose measurement (mass/volume) 95 mg/dL 70-105 Serum or plasma calcium measurement (mass/volume) 9.9 mg/dL 8.5-10.1 Serum or plasma total bilirubin measurement (mass/volume) 1.1 mg/dL 0.1-1.0 Serum or plasma alkaline phosphatase measurement (enzymatic activity/volume) 88 U/L 40-136 Serum or plasma aspartate aminotransferase measurement (enzymatic activity/volume) 39 U/L 5-34 Serum or plasma alanine aminotransferase measurement (enzymatic activity/volume) 45 U/L 0-55 Serum or plasma protein measurement (mass/volume) 7.9 g/dL 6.4-8.2 Serum or plasma albumin measurement (mass/volume) 4.5 g/dL 3.2-4.5 CALCIUM CORRECTED 9.5 mg/dL 8.5-10.1 Lipid 1996 panel - 03/08/19 07:10 Serum or plasma triglyceride measurement (mass/volume) 204 mg/dL <150 Serum or plasma cholesterol measurement (mass/volume) 242 mg/dL < 200 Serum or plasma cholesterol in HDL measurement (mass/volume) 48 mg/dL 40-60 Cholesterol in LDL [mass/volume] in serum or plasma by direct assay 161 mg/dL 1-129 Serum or plasma cholesterol in VLDL measurement (mass/volume) 41 mg/dL 5-40 Methicillin resistant Staphylococcus aureus (MRSA) screening culture - 03/08/19 07:10 Methicillin resistant Staphylococcus aureus (MRSA) screening culture NEG NRG Automated blood complete blood count (hemogram) panel - 03/09/19 02:55 Blood leukocytes automated count (number/volume) 6.4 10*3/uL 4.3-11.0 Blood erythrocytes automated count (number/volume) 4.90 10*6/uL 4.35-5.85 Venous blood hemoglobin measurement (mass/volume) 13.6 g/dL 13.3-17.7 Blood hematocrit (volume fraction) 40 % 40-54 Automated erythrocyte mean corpuscular volume 82 [foz_us] 80-99 Automated erythrocyte mean corpuscular hemoglobin (mass per erythrocyte) 28 pg 25-34 Automated erythrocyte mean corpuscular hemoglobin concentration measurement (mass/volume) 34 g/dL 32-36 Automated erythrocyte distribution width ratio 15.0 % 10.0- 14.5 Automated blood platelet count (count/volume) 136 10*3/uL 130-400 Automated blood platelet mean volume measurement 9.8 [foz_us] 7.4-10.4 Whole blood basic metabolic panel - 03/09/19 02:55 Serum or plasma sodium measurement (moles/volume) 137 mmol/L 135-145 Serum or plasma potassium measurement (moles/volume) 4.1 mmol/L 3.6-5.0 Serum or plasma chloride measurement (moles/volume) 106 mmol/L 98-107 Carbon dioxide 22 mmol/L 21-32 Serum or plasma anion gap determination (moles/volume) 9 mmol/L 5-14 Serum or plasma urea nitrogen measurement (mass/volume) 12 mg/dL 7-18 Serum or plasma creatinine measurement (mass/volume) 1.02 mg/dL 0.60-1.30 Serum or plasma urea nitrogen/creatinine mass ratio 12 NRG Serum or plasma creatinine measurement with calculation of estimated glomerular filtration rate > NRG Serum or plasma glucose measurement (mass/volume) 114 mg/dL 70-105 Serum or plasma calcium measurement (mass/volume) 8.7 mg/dL 8.5-10.1 Encounters ACCT No. Visit Date/Time Discharge Status Pt. Type Provider Facility Loc./Unit Complaint [id number] 03/25/2019 13:20:00 [id number] 02/14/2019 13:00:00 Document Registration [id number] 02/08/2019 09:40:00 Document Registration [id number] 03/19/2019 12:15:00 03/19/2019 23:59:59 CLS Outpatient FADI OLVERA MD, FACC, FACP CCDS [facility] CARD CHEST DISCOMFORT [id number] 03/08/2019 06:54:00 03/09/2019 14:08:00 DIS Outpatient FADI OLVERA MD, FACC, FACP CCDS [facility] CATH ANGINA, HTN, HYPERLIPIDEMIA, DM [id number] 03/01/2019 14:33:00 03/01/2019 23:59:59 CLS Preadmit MAY FAJARDO FACC, FADI NAVARRO CCDS [facility] RAD CHEST DISCOMFORT [id number] 03/26/2019 08:00:00 PEN Preadmit MAY FAJARDO FACC, FADI NAVARRO CCDS [facility] CATH CLAUDICATION
[2019-03-26] MEDS ORDERED: HEParin (CATH LAB) 2,000 ML IV ONE (06:45)
[2019-03-26] MEDS ORDERED: LIDOCAINE 1% INJ 20 ML 20 ML VIAL ONE (06:45)
[2019-03-26] MEDS ORDERED: NS IV 1000 ML 1,000 ML ONE (06:45)
[2019-03-26] MEDS ORDERED: NS IV 1000 ML 1,000 ML IV SCH ×2 (07:00→08:59)
[2019-03-26 07:10] LABS: HEMOGLOBIN 14.4 G/DL (13.3-17.7); MEAN PLATELET VOLUME 9.5 FL (7.4-10.4); RED CELL DISTRIBUTION WIDTH 14.8 % (10.0-14.5); WHITE BLOOD COUNT 10.1 10^3/uL (4.3-11.0)
[2019-03-26 07:23] LABS: INR 1.6 (0.8-1.4); PROTHROMBIN TIME PATIENT 19.5 SEC (12.2-14.7)
[2019-03-26 07:31] LABS: ALBUMIN 4.3 GM/DL (3.2-4.5); BILIRUBIN,TOTAL 0.9 MG/DL (0.1-1.0); CALCIUM 9.4 MG/DL (8.5-10.1); CREATININE SERUM 1.27 MG/DL (0.60-1.30); POTASSIUM 3.3 MMOL/L (3.6-5.0); TOTAL PROTEIN 7.6 GM/DL (6.4-8.2)
[2019-03-26] MEDS ORDERED: fentaNYL INJECTION 100 MCG/2 ML AMP ONE (07:35)
[2019-03-26] MEDS ORDERED: MIDAZOLAM 5 MG/5 ML (VERSED) VIAL ONE (07:35)
--- NOTE | 2019-03-26 08:59 | Cardiac Procedure Note-CS/ASA ---
Pre-Procedure Note Pre-Op Procedure Note H&P Reviewed The H&P was reviewed, patient examined and no changes noted. Date H&P Reviewed: Mar 26, 2019 Time H&P Reviewed: 08:20 Conscious Sedation Pre-Proced Time 08:20 ASA Score 3 For ASA 3 and 4: Consider anesthesia and medical clearance. Also, for patients with a history of failed moderate sedation consider anesthesia. Airway Lungs Heart ASA score ASA 1: a normal healthy patient ASA 2: a patient with a mild systemic disease (mid diabetes, controlled hypertension, obesity ASA 3: a patient with a severe systemic disease that limits activity (angina, COPD, prior Myocardial infarction) ASA 4: a patient with an incapacitating disease that is a constant threat to life (CHF, renal failure) ASA 5: a moribund patient not expected to survive 24 hrs. (ruptured aneurysm) ASA 6: a declared brain- patient whose organs are being harvested. For emergent operations, add the letter E after the classification Mallampati Classification Grade 2 Sedation Plan Analgesia, Amnesia, Plan communicated to team members, Discussed options with patient/fam, Discussed risks with patient/fam The patient is an appropriate candidate to undergo the planned procedure, sedation, and anesthesia. The patient immediately re-assessed prior to indication. FADI OLVERA MD FACP FAC CCDS Mar 26, 2019 08:59
[2019-03-26] MEDS ORDERED: PATIENT MAY USE OWN MEDS, ALL PO SCH (09:00)
--- NOTE | 2019-03-26 09:03 | Discharge Inst-Cardiology ---
Discharge Inst-Cardiac Discharge Medications Continued Medications: Albuterol Sulfate (Proair Hfa) 1 Puff Puff 2 PUFF IH PRN PRN for SHORTNESS OF BREATH, PUFF 1 PUFF = 90 MCG Aspirin (Aspir 81) 81 Mg Tablet.dr 81 MG PO DAILY, TAB Beclomethasone Dipropionate (Qvar Redihaler) 10.6 Gm Hfa.aeroba 10.6 GM IH PRN PRN for WHEEZING Cetirizine HCl (Cetirizine HCl) 10 Mg Tablet 10 MG PO DAILY, TAB Clopidogrel Bisulfate (Clopidogrel) 75 Mg Tablet 75 MG PO DAILY for 60 Days, #90 TAB 3 Refills Fish Oil/Dha/Epa (Fish Oil 1,200 mg Fish Oil) 1 Each Capsule 1 EACH PO DAILY, CAP Fluticasone Propionate (Fluticasone Propionate) 15.8 Ml [place].susp 2 SPRAY NSEACH DAILY, SPRAY Metoprolol Succinate (Toprol Xl) 50 Mg Tab.er.24h 50 MG PO DAILY, TAB Montelukast Sodium (Singulair) 10 Mg Tablet 10 MG PO DAILY, TAB Omeprazole (Omeprazole) 20 Mg Capsule.dr 20 MG PO DAILY, CAP Warfarin Sodium (Warfarin Sodium) 5 Mg Tablet 5 MG PO DAILYEXCEPT WED, TAB Warfarin Sodium (Warfarin Sodium) 7.5 Mg Tablet 7.5 MG PO WED, TAB Patient Instructions Patient Instructions: F/u with Dr Coulter in one week Stop aspirin in one week (continue Plavix and warfarin and other meds) FADI COULTER MD [facility] CCDS Mar 26, 2019 09:03
--- NOTE | 2019-03-26 09:04 | Discharge Inst-Post CATH ---
Discharge Inst-CATH/EP Post Cardiac Cath/EP D/C Inst Follow Up/Plan F/u with Dr Coulter in one week ACTIVITY * Go Home directly and rest. * Limit activity of the leg (or wrist if it was used) for 7 days including aerobics, swimming, jogging, bicycling, etc. * Restrict stair-climbing for 7 days if possible, if not, climb up with your non-cath leg, then bring together on the same step. * Avoid lifting, pushing, pulling or excessive movement of the affected e xtremity for 7 days. * Customary sexual activity may be resumed after 2 days-use caution not to use a position that strains or causes pain to the affected extremity. * No driving for 24 hours. * NO SMOKING. * Avoid straining for bowel movements for 7 days. * Gentle walking on level ground is allowed. * Returning to work will depend on the type of procedure and the results. Your doctor will discuss this with you. CALL YOUR DOCTOR FOR ANY OF THE FOLLOWING: *If bleeding from the puncture site occurs- Apply gentle pressure to site with clean cloth and call your doctor or EMS. * If a knot or lump forms under the skin, increases in size, or causes pain. * If bruising appears to be worsening or moving further down your leg instead of disappearing. * Temperature above 101 F. CARE OF YOUR GROIN INCISION; * Bruising or purple discoloration of the skin near the puncture site is common. * You may shower only, no bathtub bathing for 5 days. Be careful to avoid slipping as your leg may feel stiff. * If a closure device was used on your femoral artery, please see the attached guide regarding care of the device and your leg. * Leave dressing on FOR 24 hours. CARE OF YOUR WRIST INCISION; * Bruising or purple discoloration of the skin near the puncture site is common. * You may shower. * DO NOT submerge wrist. * Leave dressing on FOR 24 hours. FADI COULTER MD [facility] CCDS Mar 26, 2019 09:04
[2019-03-26] MEDS ORDERED: KCL 20 MEQ TAB (K-DUR) PO ONE (09:15)
--- NOTE | 2019-03-26 09:15 | NUR ---
kait from lab analyst informed that heart rate has been running in mid 40's to upper 40's.
--- NOTE | 2019-03-26 09:29 | CARDIAC CATHETERIZATION ---
DATE OF SERVICE: 03/26/2019 ABDOMINAL AORTIC AND PERIPHERAL ANGIOGRAPHY REPORT INDICATIONS: The patient is a 54-year-old man who has multiple coronary artery disease and peripheral arterial disease risk factors and who has recently had coronary stenting and who is reporting symptoms that are consistent with bilateral leg claudication. Abdominal aortic and bilateral peripheral angiography was carried out today after having obtained an informed consent. DESCRIPTION OF PROCEDURE: He was brought to the cardiac catheterization laboratory in a fasting state. Right groin was prepared and draped in the usual sterile fashion. Lidocaine 1% was used as local anesthesia. Modified Seldinger technique was used to advance a 5-Vietnamese sheath in the right femoral artery. A 5-Vietnamese pigtail catheter was used to carry out abdominal aortic angiography with the pigtail placed above the level of the renal artery origins at the level of L1. The pigtail catheter was then pulled down to just above the level of the aortoiliac bifurcation and bilateral leg artery angiography was carried out with runoff down to the level of the ankles. He tolerated the procedure well. The pigtail catheter was removed. Angiography of the right femoral artery was carried out through the sheath. Mynx was used to achieve hemostasis. He tolerated the procedure well. ABDOMINAL AORTIC ANGIOGRAPHY: Abdominal aortic angiography does not indicate any significant abdominal aortic aneurysm or stenosis or dissection. Renal arteries are identified and appear normal. The mesenteric vessels, to the extent seen, do not have significant disease. Aortoiliac bifurcation is intact without significant disease. BILATERAL LEG ARTERY ANGIOGRAPHY: Bilateral leg artery angiography was carried out with runoff down to the level of the ankles. The iliac arteries on both sides are intact. Mild plaque is exhibited. The common femoral and superficial and deep femoral arteries are intact on both sides without significant disease. Popliteal artery and the trifurcation of popliteal arteries are intact on both sides with 3-vessel runoff on both sides. CONCLUSIONS: 1. Mild peripheral arterial disease, nonobstructive. 2. Normal renal arteries. 3. No evidence of abdominal aortic aneurysm. Job ID: [id number] DocumentID: [id number] Dictated Date: 03/26/2019 08:50:53 Financial Management Analyst Date: 03/26/2019 09:29:00 Dictated By: FADI OLVERA MD, MA, FACP, FACC,
--- NOTE | 2019-03-26 10:03 | NUR ---
ANDIE IN AUTISM SPECIALIST VERIFIED THAT PATIENT IS TO TAKE ASA FOR ONE WEEK THEN STOP. THIS RN JUST VERIFYING DISCHARGE INSTRUCTIONS.
== END 2019-03-26 12:50 | disposition home or self-care (01) ==
LOC: CATH 06:35 → SDC 09:15 → CATH 12:50
PROVIDERS: ATTEND Internal Medicine Cardiovascular Disease
DX: I70.213 Atherosclerosis of native arteries of extremities with intermittent claudication, bilateral legs (principal); I25.10 Atherosclerotic heart disease of native coronary artery without angina pectoris; I48.0 Paroxysmal atrial fibrillation; I10 Essential (primary) hypertension; E78.5 Hyperlipidemia, unspecified; E11.9 Type 2 diabetes mellitus without complications; J44.9 Chronic obstructive pulmonary disease, unspecified; Z87.891 Personal history of nicotine dependence; Z86.711 Personal history of pulmonary embolism; Z79.01 Long term (current) use of anticoagulants; Z79.02 Long term (current) use of antithrombotics/antiplatelets; Z79.82 Long term (current) use of aspirin; Z79.899 Other long term (current) drug therapy; Z95.5 Presence of coronary angioplasty implant and graft
CPT/HCPCS: 36415; 36430; 75625; 75716; 80053; 80061; 85027; 85610; 85730; 87081

== ENCOUNTER → 2019-04-03 | Outpatient (CLI) | payer MEDICAID ==
[2019-04-03 12:25] LABS: BUN/CREATININE RATIO 9; CALCIUM 9.3 MG/DL (8.5-10.1); CARBON DIOXIDE 23 MMOL/L (21-32); CHLORIDE 104 MMOL/L (98-107); GFR ESTIMATED > 60; GLUCOSE 117 MG/DL (70-105); MAGNESIUM 2.2 MG/DL (1.8-2.4); POTASSIUM 3.5 MMOL/L (3.6-5.0); SODIUM 138 MMOL/L (135-145)
== END ==
LOC: LAB 11:53
PROVIDERS: ATTEND Internal Medicine Cardiovascular Disease
DX: I73.9 Peripheral vascular disease, unspecified (principal); E78.49 Other hyperlipidemia; E87.6 Hypokalemia
CPT/HCPCS: 36415; 80048; 83735

== ENCOUNTER → 2019-08-13 | Outpatient (CLI) | payer MEDICAID ==
[~2019-08-13] VITALS: Ht 180 cm; Wt 100.0 kg
[~2019-08-13] MED LIST changes: +CATHETER FLUSH 10 ML SYR IV PRN; -OMEP20CA12 PO; +OMEP20CA13 PO; +REGADENOSON 0.4 MG/5 ML SYR (LEXISCAN) IV ONE
--- NOTE | 2019-08-14 13:29 | STRESS TEST ---
DATE OF SERVICE: 08/13/2019 RESTING AND POST REGADENOSON TECHNETIUM-99M TETROFOSMIN SPECT CT IMAGING ORDERING PHYSICIAN: Dr. Coulter. PRIMARY PHYSICIAN: [facility]. CLINICAL DIAGNOSES: Chest discomfort, diabetes type 2, hypertension, hyperlipidemia, tobacco use. Baseline images were carried out after injection of 10.89 mCi of technetium-99m Tetrofosmin. This was followed by 0.4 mg regadenoson and 31.5 mCi of technetium-99m Tetrofosmin for stress imaging. The electrocardiogram showed sinus rhythm at baseline. It did not change significantly with regadenoson infusion. The patient tolerated the procedure well. Review of images at rest and following stress does not indicate any significant perfusion defects consistent with significant myocardial ischemia or infarction. Gated images show normal global left ventricular systolic function with normal regional wall motion. Left ventricular ejection fraction is calculated to be 58%. Left ventricular end diastolic volume is 80 mL. TID is absent (1.03). CONCLUSIONS: 1. No evidence of any significant myocardial ischemia or infarction on this study. 2. Normal regional wall motion. 3. Normal global left ventricular systolic function with a calculated ejection fraction of 58%. Job ID: [id number] DocumentID: [id number] Dictated Date: 08/14/2019 13:20:23 Enterprise Architect Manager Date: 08/14/2019 13:27:41 Dictated By: FADI COULTER MD, MA, FACP, FACC,
== END ==
LOC: CARD 07:48
PROVIDERS: ATTEND Internal Medicine Cardiovascular Disease
DX: I10 Essential (primary) hypertension (principal); E11.9 Type 2 diabetes mellitus without complications; E78.5 Hyperlipidemia, unspecified; R07.89 Other chest pain; Z72.0 Tobacco use
CPT/HCPCS: 78452; 93017

== ENCOUNTER → 2019-12-05 | Outpatient (CLI) | payer MEDICAID ==
[~2019-12-05] MED LIST changes: -CATHETER FLUSH 10 ML SYR IV PRN; +FLUT15.845 NSEACH; -FLUT15.88 NSEACH; -OMEP20CA13 PO; +OMEP20CA18 PO; -REGADENOSON 0.4 MG/5 ML SYR (LEXISCAN) IV ONE
--- NOTE | 2019-12-05 15:04 | Diagnostic Imaging Report ---
PROCEDURE: CT head without contrast. TECHNIQUE: Multiple contiguous axial images were obtained through the brain without the use of intravenous contrast. Auto Exposure Controls were utilized during the CT exam to meet ALARA standards for radiation dose reduction. INDICATION: Memory changes. No known trauma. COMPARISON: None. FINDINGS: No large acute territorial ischemia, mass, or hemorrhage. No midline shift or mass effect. The ventricles, cortical sulci, and basilar cisterns are patent and unremarkable. The calvarium is intact. Mucosal thickening is seen in the ethmoid sinuses. The mastoid air cells are well pneumatized. IMPRESSION: 1. No large acute territorial ischemia, mass, or hemorrhage. Dictated by: Dictated on workstation # [id number]
== END ==
LOC: RAD 13:55
PROVIDERS: ATTEND Nurse Practitioner
DX: R41.3 Other amnesia (principal)
CPT/HCPCS: 70450

== ENCOUNTER 2020-10-20 11:00 | Day surgery (SDC) | payer MEDICAID ==
[2020-10-20] VITALS (10 sets, daily range): BP systolic 105–129; BP diastolic 71–93
[~2020-10-20] VITALS: Ht 180 cm; Wt 96.0 kg
[2020-10-20 09:12] LABS: MEAN PLATELET VOLUME 9.7 fL (9.0-12.2); WHITE BLOOD COUNT 6.5 10^3/uL (4.3-11.0)
[2020-10-20 09:24] LABS: INR 1.3 (0.8-1.4); PROTHROMBIN TIME PATIENT 16.8 SEC (12.2-14.7)
[2020-10-20 09:32] LABS: ALBUMIN 4.2 GM/DL (3.2-4.5); BILIRUBIN,TOTAL 0.8 MG/DL (0.1-1.0); CALCIUM 9.4 MG/DL (8.5-10.1); CREATININE SERUM 1.29 MG/DL (0.60-1.30); POTASSIUM 4.1 MMOL/L (3.6-5.0); TOTAL PROTEIN 7.8 GM/DL (6.4-8.2)
--- NOTE | 2020-10-20 10:39 | Discharge Inst-Cardiology ---
Discharge Inst-Cardiac Discharge Medications Continued Medications: Albuterol Sulfate (Proair Hfa) 1 Puff Puff 2 PUFF IH PRN PRN for SHORTNESS OF BREATH, PUFF 1 PUFF = 90 MCG Aspirin (Aspir 81) 81 Mg Tablet.dr 81 MG PO DAILY, TAB Beclomethasone Dipropionate (Qvar Redihaler) 10.6 Gm Hfa.aeroba 10.6 GM IH PRN PRN for WHEEZING Cetirizine HCl (Cetirizine HCl) 10 Mg Tablet 10 MG PO DAILY, TAB Clopidogrel Bisulfate (Clopidogrel) 75 Mg Tablet 75 MG PO DAILY for 60 Days, #90 TAB 3 Refills Donepezil HCl (Aricept) 10 Mg Tablet 10 MG PO DAILY, TAB Fish Oil/Dha/Epa (Fish Oil 1,200 mg Fish Oil) 1 Each Capsule 1 EACH PO DAILY, CAP Fluticasone Propionate (Fluticasone Propionate) 15.8 Ml [place].susp 2 SPRAY NSEACH DAILY, SPRAY Metoprolol Succinate (Metoprolol Succinate) 25 Mg Tab.er.24h 25 MG PO DAILY, TAB Montelukast Sodium (Singulair) 10 Mg Tablet 10 MG PO DAILY, TAB Omeprazole (Omeprazole) 20 Mg Capsule.dr 20 MG PO DAILY, CAP Tiotropium [place] (Spiriva) 1 Inh Aerp 1 INH IH DAILY, INHALER Warfarin Sodium (Warfarin Sodium) 5 Mg Tablet 5 MG PO DAILY, TAB FADI OLVERA MD FACP [facility] CCDS Oct 20, 2020 10:39
--- NOTE | 2020-10-20 10:40 | Discharge Inst-Post CATH ---
Discharge Inst-CATH/EP Post Cardiac Cath/EP D/C Inst Follow Up/Plan F/u with Dr Coulter next week ACTIVITY * Go Home directly and rest. * Limit activity of the leg (or wrist if it was used) for 7 days including aerobics, swimming, jogging, bicycling, etc. * Restrict stair-climbing for 7 days if possible, if not, climb up with your no n-cath leg, then bring together on the same step. * Avoid lifting, pushing, pulling or excessive movement of the affected ext remity for 7 days. * Customary sexual activity may be resumed after 2 days-use caution not to use a position that strains or causes pain to the affected extremity. * No driving for 24 hours. * NO SMOKING. * Avoid straining for bowel movements for 7 days. * Gentle walking on level ground is allowed. * Returning to work will depend on the type of procedure and the results. Your doctor will discuss this with you. CALL YOUR DOCTOR FOR ANY OF THE FOLLOWING: *If bleeding from the puncture site occurs- Apply gentle pressure to site with clean cloth and call your doctor or EMS. * If a knot or lump forms under the skin, increases in size, or causes pain. * If bruising appears to be worsening or moving further down your leg instead of disappearing. * Temperature above 101 F. CARE OF YOUR GROIN INCISION; * Bruising or purple discoloration of the skin near the puncture site is common. * You may shower only, no bathtub bathing for 5 days. Be careful to avoid slipping as your leg may feel stiff. * If a closure device was used on your femoral artery, please see the attached guide regarding care of the device and your leg. * Leave dressing on FOR 24 hours. CARE OF YOUR WRIST INCISION; * Bruising or purple discoloration of the skin near the puncture site is common. * You may shower. * DO NOT submerge wrist. * Leave dressing on FOR 24 hours. FADI COULTER MD FACP FAC CCDS Oct 20, 2020 10:40
[~2020-10-20 11:00] MED LIST changes: +DONE10TA12 PO; +HEParin (CATH LAB) 2,000 ML IV ONE; +LIDOCAINE 1% INJ 20 ML 20 ML VIAL ONE; +MIDAZOLAM 5 MG/5 ML (VERSED) VIAL ONE; +MTP25TSR PO; +NS IV 1000 ML 1,000 ML IV SCH; +NS IV 1000 ML 1,000 ML ONE; +PATIENT MAY USE OWN MEDS, ALL PO SCH; +TIOT18CA2 IH; +WARF7.5T3 PO; -WARF7.5T49 PO; +fentaNYL INJECTION 100 MCG/2 ML AMP ONE
--- NOTE | 2020-10-20 11:21 | CARDIAC CATHETERIZATION ---
DATE OF SERVICE: 10/20/2020 CARDIAC CATHETERIZATION REPORT INDICATIONS FOR PROCEDURE: The patient is a 55-year-old man, who is known to have coronary artery disease. He is known to have had a stent to the left anterior descending artery in 02/2019. This was an Alpine Xience 2.25 x 33 mm stent that was postdilated to 2.75 mm. Lately, he has been having chest discomfort that is suggestive of recurrent angina. He has continuing risk factors. Cardiac catheterization was carried out today after having obtained an informed consent. DESCRIPTION OF PROCEDURE: He was brought to the cardiac catheterization laboratory in a fasting state. The right groin was prepared and draped in the usual sterile fashion. Lidocaine 1% was used as local anesthesia. Modified Seldinger technique was used to advance a 5-Eritrean sheath in the right femoral artery. A 5-Eritrean JL4 catheter was used for left coronary angiography. A 5-Eritrean JR4 catheter was used for right coronary angiography. A 5-Eritrean pigtail catheter was used for left heart catheterization and left ventricular angiography. Angiography of the right femoral artery was carried out through the sheath. Mynx was used to achieve hemostasis. He tolerated the procedure well. HEMODYNAMICS: Left ventricular end-diastolic pressure following coronary angiography was 10 mmHg. There is no significant pressure gradient on pullback across the aortic valve. Ascending aortic pressure is 100/63 with a mean of 79 mmHg. CORONARY ANGIOGRAPHY: Left main coronary artery is free of significant disease. Left anterior descending artery has a patent stent in its proximal and mid portions. There is a diffuse mild plaque of the left anterior descending. There is mild proximal coronary calcification of the left anterior descending. There is approximately 20% in-stent restenosis. The left circumflex artery is nondominant. There is a mild plaque. Right coronary artery is dominant and has diffuse mild to moderate disease. There is stenosis up to approximately 40% in the proximal and mid portions. LEFT VENTRICULAR ANGIOGRAPHY: Left ventricular angiography was carried out in the right anterior oblique projection. Global left ventricular systolic function is well preserved. Left ventricular ejection fraction is approximately 50% to 55%. CONCLUSIONS: 1. Mild to moderate diffuse coronary artery disease. There is a patent stent in the proximal left anterior descending that is known to be Alpine Xience 2.25 x 33 mm that was placed in 02/2019. It exhibits no more than mild in-stent restenosis. 2. Normal left ventricular end-diastolic pressure. 3. A well preserved global left ventricular systolic function with an ejection fraction of 50% to 55%. DISCUSSION AND RECOMMENDATIONS: Based on the results of the study, it appears appropriate to continue a conservative approach. Risk factor modification has again been reviewed with him. He has been advised to refrain from tobacco use. Current insulin regimen is being continued. He is on a low-dose aspirin. He is also on warfarin that is being managed by his primary care physician. INR is currently subtherapeutic. At this time, he is also on clopidogrel 75 mg a day, which will be stopped after warfarin has been resumed and INR approaches therapeutic. He is completely intolerant to any statin. He has recently been prescribed Praluent. A prescription has been provided, but he has not started to use it yet. We have asked him to start using this medication because controlling hyperlipidemia would be an important part of his management. Close outpatient followup is advised. Job ID: [id number] DocumentID: [id number] Dictated Date: 10/20/2020 10:47:42 Classification And Treatment Director Date: 10/20/2020 11:19:54 Dictated By: FADI OLVERA MD, MA, FACP, FACC,
== END 2020-10-20 13:53 | disposition home or self-care (01) ==
LOC: SDC 11:00 → CATH 13:53
PROVIDERS: ATTEND Internal Medicine Cardiovascular Disease
DX: I25.10 Atherosclerotic heart disease of native coronary artery without angina pectoris (principal); E11.9 Type 2 diabetes mellitus without complications; I10 Essential (primary) hypertension; I65.23 Occlusion and stenosis of bilateral carotid arteries; J44.9 Chronic obstructive pulmonary disease, unspecified; I48.0 Paroxysmal atrial fibrillation; E78.2 Mixed hyperlipidemia; Z79.899 Other long term (current) drug therapy; Z79.51 Long term (current) use of inhaled steroids; Z79.82 Long term (current) use of aspirin; Z88.7 Allergy status to serum and vaccine; Z88.8 Allergy status to other drugs, medicaments and biological substances; Z83.3 Family history of diabetes mellitus
CPT/HCPCS: 36415; 80053; 80061; 85027; 85610; 85730; 87081; 93458

== ENCOUNTER → 2021-01-22 | Outpatient (CLI) | payer MEDICAID ==
[~2021-01-22] MED LIST changes: -HEParin (CATH LAB) 2,000 ML IV ONE; -LIDOCAINE 1% INJ 20 ML 20 ML VIAL ONE; -MIDAZOLAM 5 MG/5 ML (VERSED) VIAL ONE; -NS IV 1000 ML 1,000 ML IV SCH; -NS IV 1000 ML 1,000 ML ONE; -PATIENT MAY USE OWN MEDS, ALL PO SCH; -fentaNYL INJECTION 100 MCG/2 ML AMP ONE
--- NOTE | 2021-01-22 13:27 | Diagnostic Imaging Report ---
EXAMINATION: CT Chest without contrast. TECHNIQUE: Multiple contiguous axial images were obtained through the chest without the use of intravenous contrast. All CT scans use one or more of the following dose optimizing techniques: automated exposure control, MA and/or KvP adjustment based on a patient size and exam type, or iterative reconstruction. HISTORY: Shortness of breath, COPD COMPARISON: None available. FINDINGS: Thyroid: The thyroid is normal. Mediastinum: Heart size is normal without significant pericardial effusion. Calcifications of the aorta and coronary vessels. Thoracic aorta is normal in caliber. No suspicious lymphadenopathy. Lungs and airways: There are background emphysematous changes of lungs without consolidation, pleural effusion, or pneumothorax. Linear atelectasis or scarring within the lung bases. There is no suspicious pulmonary lesion. The airways are normal. Upper abdomen: The subphrenic structures are normal. Musculoskeletal: Degenerative changes of the spine without suspicious osseous lesion or compression fracture. IMPRESSION: 1. Background findings of COPD without acute abnormality in the chest. Dictated by: Dictated on workstation # [id number]
== END ==
LOC: RT 13:00
PROVIDERS: ATTEND Nurse Practitioner Family
DX: J44.9 Chronic obstructive pulmonary disease, unspecified (principal); Z98.890 Other specified postprocedural states
CPT/HCPCS: 71250

== ENCOUNTER → 2021-03-04 | Outpatient (CLI) | payer MEDICAID ==
[~2021-03-04] MED LIST changes: +RT-ALBUTEROL SULF 2.5 MG/3 ML PRE-MIX VIAL INH ONE
== END ==
LOC: RT 08:00
PROVIDERS: ATTEND Nurse Practitioner Family
DX: J44.9 Chronic obstructive pulmonary disease, unspecified (principal)
CPT/HCPCS: 94060; 94726; 94729

== ENCOUNTER 2021-04-07 10:00 | Outpatient (RCR) | payer MEDICAID ==
[~2021-04-07 10:00] MED LIST changes: -RT-ALBUTEROL SULF 2.5 MG/3 ML PRE-MIX VIAL INH ONE
== END 2021-07-06 | disposition home or self-care (01) ==
LOC: CARD 10:00
PROVIDERS: ATTEND Nurse Practitioner Family
DX: R00.1 Bradycardia, unspecified (principal)
CPT/HCPCS: 93270

== ENCOUNTER 2022-07-12 09:19 | Day surgery (SDC) | payer MEDICAID ==
[~2022-07-12] VITALS: Ht 180 cm; Wt 93.4 kg
[2022-07-12] VITALS (10 sets, daily range): BP systolic 103–131; BP diastolic 54–94
[2022-07-12] MEDS ORDERED: NS IV 1000 ML 1,000 ML ONE (09:44)
[2022-07-12] MEDS ORDERED: LIDOCAINE 1% INJ 30 ML (XYLOCAINE) VIAL ONE (09:44)
[2022-07-12] MEDS ORDERED: HEParin (CATH LAB) 2,000 ML IV ONE (09:44)
[2022-07-12] MEDS ORDERED: NS IV 1000 ML 1,000 ML IV ONE (09:45)
[2022-07-12 10:05] LABS: HEMATOCRIT 49 % (40-54); HEMOGLOBIN 16.4 g/dL (13.3-17.7); MEAN CORPUSCULAR HEMOGLOBIN 29 pg (25-34); MEAN CORPUSCULAR HGB CONC 33 g/dL (32-36); MEAN CORPUSCULAR VOLUME 86 fL (80-99); MEAN PLATELET VOLUME 9.9 fL (9.0-12.2); PLATELET COUNT 184 10^3/uL (130-400); WHITE BLOOD COUNT 6.6 10^3/uL (4.3-11.0)
[2022-07-12 10:32] LABS: INR 1.6 (0.8-1.4); PROTHROMBIN TIME PATIENT 19.1 SEC (12.2-14.7)
[2022-07-12 10:38] LABS: ALANINE AMINOTRANSFERASE 74 U/L (0-55); ALBUMIN 4.6 GM/DL (3.2-4.5); ALKALINE PHOSPHATASE 60 U/L (40-136); BILIRUBIN,TOTAL 1.7 MG/DL (0.1-1.0); BUN/CREATININE RATIO 9; CARBON DIOXIDE 29 MMOL/L (21-32); CHLORIDE 102 MMOL/L (98-107); CHOLESTEROL 130 MG/DL (< 200); CREATININE SERUM 1.23 MG/DL (0.60-1.30); GFR ESTIMATED 69; GLUCOSE 92 MG/DL (70-105); HDL CHOLESTEROL 34 MG/DL (40-60); SODIUM 143 MMOL/L (135-145); TOTAL PROTEIN 8.2 GM/DL (6.4-8.2); TRIGLYCERIDES 129 MG/DL (<150); VLDL CHOLESTEROL 26 MG/DL (5-40)
[2022-07-12] MEDS ORDERED: fentaNYL INJ 100 MCG/2 ML AMP ONE (11:51)
[2022-07-12] MEDS ORDERED: MIDAZOLAM 5 MG/5 ML (VERSED) VIAL ONE (11:51)
--- NOTE | 2022-07-12 13:06 | Cardiac Procedure Note-CS/ASA ---
Pre-Procedure Note Pre-Op Procedure Note Date of Available H&P: Jul 07, 2022 Date H&P Reviewed: Jul 12, 2022 Time H&P Reviewed: 12:00 History & Physical: No changes noted Conscious Sedation Pre-Proced ASA Score 3 For ASA 3 and 4: Consider anesthesia and medical clearance. Also, for patients with a history of failed moderate sedation consider anesthesia. Airway Lungs Heart ASA score ASA 1: a normal healthy patient ASA 2: a patient with a mild systemic disease (mid diabetes, controlled hypertension, obesity ASA 3: a patient with a severe systemic disease that limits activity (angina, COPD, prior Myocardial infarction) ASA 4: a patient with an incapacitating disease that is a constant threat to life (CHF, renal failure) ASA 5: a moribund patient not expected to survive 24 hrs. (ruptured aneurysm) ASA 6: a declared brain- patient whose organs are being harvested. For emergent operations, add the letter E after the classification Mallampati Classification Grade 2 Sedation Plan Analgesia, Amnesia, Plan communicated to team members The patient is an appropriate candidate to undergo the planned procedure, sedation, and anesthesia. The patient immediately re-assessed prior to indication. FADI OLVERA MD FACP [facility] Jul 12, 2022 13:06
--- NOTE | 2022-07-12 13:10 | Discharge Inst-Post CATH ---
Discharge Inst-CATH/EP Post Cardiac Cath/EP D/C Inst Follow Up/Plan F/u with Dr Coulter in 1-2 weeks ACTIVITY * Go Home directly and rest. * Limit activity of the leg (or wrist if it was used) for 7 days including aerobics, swimming, jogging, bicycling, etc. * Restrict stair-climbing for 7 days if possible, if not, climb up with your non-cath leg, then bring together on the same step. * Avoid lifting, pushing, pulling or excessive movement of the affected extremity for 7 days. * Customary sexual activity may be resumed after 2 days-use caution not to use a position that strains or causes pain to the affected extremity. * No driving for 24 hours. * NO SMOKING. * Avoid straining for bowel movements for 7 days. * Gentle walking on level ground is allowed. * Returning to work will depend on the type of procedure and the results. Your doctor will discuss this with you. CALL YOUR DOCTOR FOR ANY OF THE FOLLOWING: *If bleeding from the puncture site occurs- Apply gentle pressure to site with clean cloth and call your doctor or EMS. * If a knot or lump forms under the skin, increases in size, or causes pain. * If bruising appears to be worsening or moving further down your leg instead of disappearing. * Temperature above 101 F. CARE OF YOUR GROIN INCISION; * Bruising or purple discoloration of the skin near the puncture site is common. * You may shower only, no bathtub bathing for 5 days. Be careful to avoid slipping as your leg may feel stiff. * If a closure device was used on your femoral artery, please see the attached guide regarding care of the device and your leg. * Leave dressing on FOR 24 hours. CARE OF YOUR WRIST INCISION; * Bruising or purple discoloration of the skin near the puncture site is common. * You may shower. * DO NOT submerge wrist. * Leave dressing on FOR 24 hours. FADI COULTER MD [facility] Jul 12, 2022 13:10
--- NOTE | 2022-07-12 13:10 | Discharge Inst-Cardiology ---
Discharge Inst-Cardiac Discharge Medications Continued Medications: Albuterol Sulfate (Proair Hfa) 1 Puff Puff 2 PUFF IH PRN PRN for SHORTNESS OF BREATH, PUFF 1 PUFF = 90 MCG Aspirin (Aspir 81) 81 Mg Tablet.dr 81 MG PO DAILY, TAB Beclomethasone Dipropionate (Qvar Redihaler) 10.6 Gm Hfa.aeroba 10.6 GM IH PRN PRN for WHEEZING Cetirizine HCl (Cetirizine HCl) 10 Mg Tablet 10 MG PO DAILY, TAB Donepezil HCl (Aricept) 10 Mg Tablet 10 MG PO DAILY, TAB Fish Oil/Dha/Epa (Fish Oil 1,200 mg Fish Oil) 1 Each Capsule 1 EACH PO DAILY, CAP Fluticasone Propionate (Fluticasone Propionate) 15.8 Ml Tyler.susp 2 SPRAY NSEACH DAILY, SPRAY Metoprolol Succinate (Metoprolol Succinate) 25 Mg Tab.er.24h 25 MG PO DAILY, TAB Montelukast Sodium (Singulair) 10 Mg Tablet 10 MG PO DAILY, TAB Omeprazole (Omeprazole) 20 Mg Capsule.dr 20 MG PO DAILY, CAP Warfarin Sodium (Warfarin Sodium) 5 Mg Tablet 5 MG PO DAILY, TAB FADI OLVERA MD FACP [facility] Jul 12, 2022 13:10
[2022-07-12] MEDS ORDERED: NS IV 1000 ML 1,000 ML IV SCH (13:15)
[2022-07-12] MEDS ORDERED: PATIENT MAY USE OWN MEDS, ALL PO SCH (13:15)
--- NOTE | 2022-07-12 16:20 | CARDIAC CATHETERIZATION ---
DATE OF SERVICE: 07/12/2022 CARDIAC CATHETERIZATION REPORT INDICATION FOR PROCEDURE: The patient is a 57-year-old gentleman who is known to have coronary artery disease and has had stenting of the left anterior descending in 2019. He has been experiencing symptoms consistent with new onset of angina. Cardiac catheterization was carried out today after having obtained an informed consent. DESCRIPTION OF PROCEDURE: He was brought to the cardiac catheterization laboratory in a fasting state. Right groin was prepared and draped in the usual sterile fashion. Lidocaine 1% was used for local anesthesia. Modified Seldinger technique was used to advance a 5-Wallisian sheath in the right femoral artery. Angiography of the right femoral artery was carried out through the sheath, 5-Wallisian JL4 catheter for left coronary angiography, 5-Wallisian JR4 catheter was used for right coronary angiography, 5-Wallisian pigtail catheter was used for left heart catheterization and left ventricular angiography. At the end of the procedure, Mynx was used to achieve hemostasis following sheath removal. The patient tolerated the procedure well. HEMODYNAMICS: Left ventricular end-diastolic pressure following coronary angiography was 12 mmHg. There was no significant pressure gradient on pullback across the aortic valve. Ascending aortic pressure was 101/72 with a mean 89 mmHg. CORONARY ANGIOGRAPHY: Left main coronary artery is free of significant disease. Left anterior descending artery has a patent stent in its mid portion. It does not exhibit significant in-stent restenosis. There is mild plaque involving the left anterior descending. Left circumflex artery does not exhibit significant disease. The right coronary artery is dominant and does not exhibit significant disease. LEFT VENTRICULAR ANGIOGRAPHY: Left ventricular angiography was carried out in the right anterior oblique projection. Global left ventricular systolic function is well preserved. Left ventricular ejection fraction is 50 to 55%. CONCLUSIONS: 1. Angiographically mild coronary artery disease. There is a previously placed patent stent in the proximal left anterior descending that is known to be Alpine Xience 2.25 x 33 mm (postdilated to a size of 2.75 mm). 2. Normal global left ventricular systolic function with ejection fraction of 50 to 55%. 3. Normal left ventricular end-diastolic pressure. DISCUSSION AND RECOMMENDATIONS: Based on results of the study, it appears appropriate to continue a conservative approach. Risk factor modification has been reviewed. Current regimen is being continued. Outpatient followup is advised. Job ID: [id number] DocumentID: [id number] Dictated Date: 07/12/2022 12:49:25 Director Client Date: 07/12/2022 16:19:15 Dictated By: FADI OLVERA MD, MA, FACP, FACC, MTDD
== END 2022-07-12 16:00 | disposition home or self-care (01) ==
LOC: CATH 09:19 → SDC 13:08 → CATH 16:00
PROVIDERS: ATTEND Internal Medicine Cardiovascular Disease
DX: I25.118 Atherosclerotic heart disease of native coronary artery with other forms of angina pectoris (principal); I48.0 Paroxysmal atrial fibrillation; R73.03 Prediabetes; Z86.711 Personal history of pulmonary embolism; J44.9 Chronic obstructive pulmonary disease, unspecified; F17.220 Nicotine dependence, chewing tobacco, uncomplicated; I70.213 Atherosclerosis of native arteries of extremities with intermittent claudication, bilateral legs; E78.2 Mixed hyperlipidemia; Z79.01 Long term (current) use of anticoagulants; Z79.899 Other long term (current) drug therapy
CPT/HCPCS: 36415; 80053; 80061; 85027; 85610; 85730; 87081; 93005; 93458